=== PATIENT | male | born 1995 | race African-American/Black ===

== ENCOUNTER 2017-04-19 15:52 | Emergency (ER) | payer OTHER ==
[~2017-04-19] VITALS: Ht 175.3 cm; Wt 87.3 kg
[2017-04-19 15:52] VITALS: BP 142/79
[2017-04-19] MEDS ORDERED: CIPR500T89 PO (16:23)
[2017-04-19] MEDS ORDERED: AZITHROMYCIN 250 MG TAB PO ONE (16:30)
[2017-04-19] MEDS ORDERED: cefTRIAXone SOD 250 MG VIAL (J0696) IM ONE (16:30)
== END 2017-04-19 16:44 | disposition home or self-care (01) ==
LOC: M ED 15:57
DX: R30.0 Dysuria (principal)
CPT/HCPCS: 87088; 87186; 87491; 87591; 96372; 99283; J0696